=== PATIENT | female | born 1970 | race Hispanic/Latino ===

== ENCOUNTER 2020-10-08 17:50 | Observation (INO) | payer SELFPAY ==
[2020-10-08] MEDS ORDERED: Labetalol HCl 100 MG/20 ML VIAL SLOW IVP PRN (19:18)
[2020-10-08] MEDS ORDERED: Acetaminophen 325 MG TAB PO PRN (19:18)
[2020-10-08] MEDS ORDERED: Ondansetron PF 4 MG/2 ML Vial IVP PRN (19:18)
[2020-10-08] MEDS ORDERED: hydrALAZINE 20 MG/ML VIAL SLOW IVP PRN ×2 (19:18→19:41)
[2020-10-08] MEDS ORDERED: HYDROcodone/Acetaminophen 10/325 mg Tablet PO PRN (19:18)
[2020-10-08] MEDS ORDERED: Morphine 2 MG/ML VIAL SLOW IVP PRN (19:41)
[2020-10-08] MEDS ORDERED: Aspirin 325 mg Enteric Coated Tablet PO SCH (19:45)
[2020-10-08 20:28] LABS: SARS-CoV-2 NAA Rapid Test DETECTED (NotDetected)
[2020-10-08] MEDS ORDERED: Atorvastatin Calcium 40 MG TAB PO SCH (21:00)
[2020-10-08 22:56] VITALS: BMI 41.5
[2020-10-08] MEDS ORDERED: HumaLOG 300 UNITS/3 ML VIAL SC PRN (23:45)
[2020-10-08] MEDS ORDERED: valACYclovir 500 MG TAB PO SCH (23:59)
[2020-10-09] MEDS: Famotidine 20 MG TAB PO SCH ×2 (00:09→08:12)
[2020-10-09 05:40] LABS: BHCG - Serum Negative (NEGATIVE); Pregs Control Background? CLEAR/WHITE (CLR/WHITE); Pregs Control Bar Appear? YES (CONTROL BAR)
[2020-10-09 05:48] LABS: Band 2 % (5-11); Hemoglobin 14.5 g/dL (12.0-16.0); Lymphocytes 20 % (21-51); MDiff Complete? YES; Mean Corpuscular HGB CONC 31.8 g/dL (32.0-36.0); Mean Corpuscular Hemoglobin 27.4 pg (27.0-31.0); Mean Corpuscular Volume 86.1 fL (78.0-98.0); Mean Platelet Volume 7.8 fL (7.4-10.4); Monocytes 4 % (0-10); Neutrophil 74 % (42-75); Platelet Count 220 thou/uL (130-400); Platelet Morphology Comment Appears Adequate; RBC Morphology Normal; Red Blood Cell (RBC) Count 5.28 mill/uL (4.20-5.40); White Blood Cell (WBC) Count 5.9 thou/uL (4.8-10.8)
[2020-10-09 05:51] LABS: ALT (SGPT) 15 U/L (8-55); AST (SGOT) 20 U/L (5-34); Albumin 3.5 g/dL (3.5-5.0); Alkaline Phosphatase 60 U/L (40-110); Anion Gap 17 mmol/L (10-20); BUN (Urea Nitrogen) 15 mg/dL (7.0-18.7); Bilirubin, Total 0.6 mg/dL (0.2-1.2); Calc. Creatinine Clearance 130 mL/min (70-130); Calcium 9.2 mg/dL (7.8-10.44); Carbon Dioxide 23 mmol/L (22-29); Cardiac Risk 4.2 (Less than 4.5); Chloride 100 mmol/L (98-107); Cholesterol 125 mg/dl (< 200 Desired); Globulin 4.2 g/dL (2.4-3.5); Glucose 273 mg/dL (70-105); HDL Cholesterol 30 mg/dL (>60 Neg Risk); LDL Cholesterol, Calculated 73 mg/dL; Potassium 3.8 mmol/L (3.5-5.1); Protein, Total 7.7 g/dL (6.0-8.3); Sodium 136 mmol/L (136-145); Triglycerides 108 mg/dL (Less than 150)
[2020-10-09] MEDS: HumaLOG 300 UNITS/3 ML VIAL SC PRN ×2 (06:00→14:10)
[2020-10-09] MEDS ORDERED: valACYclovir 500 MG TAB PO SCH ×2 (09:00)
[2020-10-09] MEDS ORDERED: Alogliptin 25 MG TAB PO SCH (09:00)
[2020-10-09] MEDS ORDERED: Aspirin 325 mg Enteric Coated Tablet PO SCH (09:00)
[2020-10-09] MEDS ORDERED: Enoxaparin Sodium 30 MG/0.3 ML SYRINGE SC SCH (09:00)
[2020-10-09] MEDS: metFORMIN 500 MG TAB PO SCH ×2 (11:47→17:58)
[2020-10-09 12:18] VITALS: TEMP 98.1
[2020-10-09] MEDS ORDERED: METFORMIN HCL PO SCH (17:00)
[2020-10-09] MEDS ORDERED: SITAGLIPTIN PHOS PO SCH (17:00)
[2020-10-09] MEDS ORDERED: [UNRECOGNIZED DRUG - OTHER] PO SCH (17:00)
[2020-10-09 17:55] VITALS: BP 119/75
== END 2020-10-09 19:20 | disposition home or self-care (01) ==
LOC: ERS 17:50 → 2SW 19:18
PROVIDERS: ADMIT Internal Medicine; ATTEND Internal Medicine
DX: G45.9 Transient cerebral ischemic attack, unspecified (principal); U07.1 COVID-19; J12.82 Pneumonia due to coronavirus disease 2019; E11.9 Type 2 diabetes mellitus without complications; E66.9 Obesity, unspecified; Z68.41 Body mass index [BMI] 40.0-44.9, adult; Z79.84 Long term (current) use of oral hypoglycemic drugs; Z79.899 Other long term (current) drug therapy
CPT/HCPCS: 0240U; 36415; 36416; 70551; 80053; 80061; 84703; 85025; 90471; 90732; 93005; 96372; G0009; G0378; J1650; J1815